=== PATIENT | male | born 1960 | race Caucasian/White ===

== ENCOUNTER 2019-04-27 14:17 | Emergency (ER) | payer SELFPAY ==
--- NOTE | 2019-04-27 14:45 | ER Document Report ---
ED Medical Screen (RME) - General Chief Complaint: Groin Pain Stated Complaint: POSSIBLE HERNIA Time Seen by Provider: 04/27/19 14:39 Mode of Arrival: Ambulatory Information source: Patient Notes: 58-year-old male presented to ED for complaint of a large boil/abscess to the right side of his neck, pain in the left groin that he thinks is a hernia and a obvious umbilical hernia. He states the thing on his neck was just a small pimple-like thing for 5 days ago and it is blown up quickly it is red and warm, he does have a reducible umbilical hernia and he states he sure he has 1 in the left groin also. He is alert oriented respirations regular nonlabored speaking in full sentences. He states the pain in the left groin is a 4.5 out of 5, states the pain in his right neck is about a 5 and the umbilical hernia is about a 1. He states the left groin pain is been for about 3 weeks but yesterday it jumped up tremendously in the amount of pain. I have greeted and performed a rapid initial assessment of this patient. A comprehensive ED assessment and evaluation of the patient, analysis of test results and completion of medical decision making process will be conducted by an additional ED providers. TRAVEL OUTSIDE OF THE [place] IN LAST 30 DAYS: No - Related Data Allergies/Adverse Reactions: No Known Allergies Allergy (Unverified 03/15/15 13:19) Physical Exam - Vital signs Vitals: Temp Pulse Resp BP Pulse Ox 99.0 F 102 H 20 158/75 H 97 04/27/19 14:37 04/27/19 14:37 04/27/19 14:37 04/27/19 14:37 04/27/19 14:37 Course - Vital Signs Vital signs: Temp Pulse Resp BP Pulse Ox 99.0 F 102 H 20 158/75 H 97 04/27/19 14:37 04/27/19 14:37 04/27/19 14:37 04/27/19 14:37 04/27/19 14:37
[2019-04-27 15:17] LABS: ABSOLUTE BASOPHILS # (AUTO) 0.1 10^3/uL (0.0-0.2); ABSOLUTE EOSINOPHILS # (AUTO) 0.1 10^3/uL (0.0-0.6); ABSOLUTE LYMPHOCYTES (AUTO) 1.7 10^3/uL (0.5-4.7); ABSOLUTE MONOCYTES (AUTO) 1.5 10^3/uL (0.1-1.4); ABSOLUTE NEUT (AUTO) 12.9 10^3/uL (1.7-8.2); BASOPHILS % (AUTO) 0.6 % (0-2); EOSINOPHILS % (AUTO) 0.4 % (0-6); HEMATOCRIT 46.8 % (37.9-51.0); HEMOGLOBIN 16.3 g/dL (13.5-17.0); LYMPHOCYTES % (AUTO) 10.3 % (13-45); MEAN CORPUSCULAR HEMOGLOBIN 29.6 pg (27.0-33.4); MEAN CORPUSCULAR HGB CONC 34.8 g/dL (32.0-36.0); MEAN CORPUSCULAR VOLUME 85 fl (80-97); PLATELET COUNT 234 10^3/uL (150-450); RED BLOOD COUNT 5.49 10^6/uL (4.35-5.55); SEGMENTED NEUTROPHILS % (AUTO) 79.7 % (42-78); TOTAL CELLS COUNTED % (AUTO) 100 %; WHITE BLOOD COUNT 16.2 10^3/uL (4.0-10.5)
[2019-04-27 15:20] LABS: APPEARANCE,URINE SLIGHTLY-CLOUDY; BILIRUBIN,URINE NEGATIVE (NEGATIVE); COLOR,URINE YELLOW; GLUCOSE, URINE NEGATIVE (NEGATIVE); KETONES,URINE NEGATIVE (NEGATIVE); PROTEIN,URINE NEGATIVE (NEGATIVE); URINE SPECIFIC GRAVITY 1.015; UROBILINOGEN,URINE NEGATIVE mg/dL (<2.0)
[2019-04-27 15:30] LABS: ALBUMIN 4.2 g/dL (3.5-5.0); ALKALINE PHOSPHATASE 98 U/L (38-126); ANION GAP 11 (5-19); ASPARTATE AMINO TRANSFERASE 20 U/L (17-59); BILIRUBIN,DIRECT 0.2 mg/dL (0.0-0.4); BILIRUBIN,TOTAL 1.2 mg/dL (0.2-1.3); BLOOD UREA NITROGEN 13 mg/dL (7-20); CALCIUM 9.3 mg/dL (8.4-10.2); CARBON DIOXIDE 25 mmol/L (22-30); CHLORIDE 102 mmol/L (98-107); GLUCOSE 95 mg/dL (75-110); POTASSIUM 4.1 mmol/L (3.6-5.0); TOTAL PROTEIN 7.5 g/dL (6.3-8.2)
--- NOTE | 2019-04-27 16:22 | RADIOLOGY REPORT (SQ) ---
EXAM DESCRIPTION: U/S NON OB PEL W/DOPPLER COMPLETED DATE/TIME: 04/27/2019 3:41 pm REASON FOR STUDY: Left groin pain possible hernia COMPARISON: None. TECHNIQUE: Dynamic and static grayscale images acquired of the localized site of clinical concern an d recorded on PACS. Additional selected color Doppler and spectral images recorded. SITE OF CONCERN: Left groin LIMITATIONS: None. FINDINGS: SKIN AND SUBCUTANEOUS TISSUES: Sonographically normal lymph node. DEEP SOFT TISSUES/MUSCLES: Incompletely compressible hernia in the region of interest. Limited furth er evaluation due to pain tolerance. VASCULAR: No increased or decreased vascularity. No occlusions. OTHER: No other significant finding. IMPRESSION: Hernia in the left inguinal region. Patient appears to have significant pain with manip ulation of this area. If clinically warranted, evaluation with CT may help assess for strangulation. TECHNICAL DOCUMENTATION: JOB ID: [id number] 2010 [employer]- All Rights Reserved Reading location - IP/workstation name: [email or web address]
--- NOTE | 2019-04-27 19:40 | RADIOLOGY REPORT (SQ) ---
EXAM DESCRIPTION: CT ABD/PELVIS WITH IV ONLY COMPLETED DATE/TIME: 04/27/2019 7:26 pm REASON FOR STUDY: eval for incarcerated hernia COMPARISON: None. TECHNIQUE: CT scan of the abdomen and pelvis performed using helical scanning technique with dynamic intravenous contrast injection. No oral contrast. Images reviewed with lung, soft tissue, and bone windows. Reconstructed coronal and sagittal MPR images reviewed. Delayed images for evaluation of the urinary system also acquired. All images stored on PACS. All CT scanners at this facility use dose modulation, iterative reconstruction, and/or weight based d osing when appropriate to reduce radiation dose to as low as reasonably achievable (ALARA). [facility]: Dose Right [facility]: CareDose [facility]: Dose Right [facility]: Teradose 4D [facility]: Tylr Mobile CONTRAST TYPE AND DOSE: contrast/concentration: Isovue 350.00 mg/ml; Total Contrast Delivered: 100.0 ml; Total Saline Delivered: 45.0 ml RENAL FUNCTION: GFR > 60. RADIATION DOSE: CT Rad equipment meets quality standard of care and radiation dose reduction techniq ues were employed. CTDIvol: 11.0 - 15.3 mGy. DLP: 1491 mGy-cm.. LIMITATIONS: None. FINDINGS: LOWER CHEST: No significant findings. No nodules or infiltrates. LIVER: Normal size. No masses. No dilated ducts. SPLEEN: Normal size. No focal lesions. PANCREAS: No masses. No significant calcifications. No adjacent inflammation or peripancreatic fluid collections. Pancreatic duct not dilated. GALLBLADDER: No identified stones by CT criteria. No inflammatory changes to suggest cholecystitis. ADRENAL GLANDS: No significant masses or asymmetry. RIGHT KIDNEY AND URETER: No solid masses. No significant calcifications. No hydronephrosis or hyd roureter. LEFT KIDNEY AND URETER: No solid masses. No significant calcifications. No hydronephrosis or hydr oureter. AORTA AND VESSELS: No aneurysm. No dissection. Renal arteries, SMA, celiac without stenosis. RETROPERITONEUM: No retroperitoneal adenopathy, hemorrhage or masses. BOWEL AND PERITONEAL CAVITY: There is inflammatory change with very colonic stranding at the junction of the sigmoid and descending colons typical of diverticulitis. No abscess. APPENDIX: Not visualized. PELVIS: No mass. No free fluid. Normal bladder. ABDOMINAL WALL: There is stranding in the inguinal canal on the left likely related to the diverticul itis. Some herniated into the inguinal canal. No bowel within the inguinal canal. There is also a periumbilical fat containing hernia. BONES: No significant or acute findings. OTHER: No other significant finding. IMPRESSION: Diverticulitis of the sigmoid colon at the junction of the descending colon just adjacen t to the inguinal canal on the left. There is some fat stranding extending into the inguinal canal b ut no herniated bowel. Fat containing periumbilical hernia. TECHNICAL DOCUMENTATION: JOB ID: [id number] Quality ID # [id number]: Final reports with documentation of one or more dose reduction techniques (e.g., Au tomated exposure control, adjustment of the mA and/or kV according to patient size, use of iterative reconstruction technique) 2010 [employer]- All Rights Reserved Reading location - IP/workstation name: [email or web address]
[2019-04-27] MEDS ORDERED: OXYCODONE-ACETAMINOPHEN 5-325 MG TABLET PO ONE (19:52)
[2019-04-27] MEDS ORDERED: NORMAL SALINE 1000 ML 1,000 ML IV ONE (19:53)
[2019-04-27] MEDS ORDERED: ONDANSETRON HCL INJ/PF 4 MG/2 ML SDV IV ONE (19:54)
[2019-04-27] MEDS ORDERED: MORPHINE SULFATE 10 MG/ML INJ IV ONE (19:54)
[2019-04-27] MEDS ORDERED: CIPROFLOXACIN HCL 750 MG TABLET PO ONE (21:15)
[2019-04-27] MEDS ORDERED: METRONIDAZOLE 500 MG TABLET PO ONE (21:15)
[2019-04-27] MEDS ORDERED: HYDROCODONE/ACETAMINOPHEN 5-325 MG (6 TAB/ER DISP) PO PRN (22:15)
[2019-04-27] MEDS ORDERED: ONDANSETRON ODT 4 MG TAB (6 TAB/ER DISP) PO PRN (22:15)
--- NOTE | 2019-04-27 22:20 | ER Document Report ---
ED GI/ - General Chief Complaint: Groin Pain Stated Complaint: POSSIBLE HERNIA Time Seen by Provider: 04/27/19 14:39 Mode of Arrival: Ambulatory Notes: 58-year-old male presented to ED for pain in the left groin that he thinks is a hernia and a obvious umbilical hernia. He states the pain in the left groin is a 4.5 out of 5, states the pain in his right neck is about a 5 and the umbilical hernia is about a 1. He states the left groin pain is been for about 3 weeks but yesterday the pain increased significantly. TRAVEL OUTSIDE OF THE [place] IN LAST 30 DAYS: No - Related Data Allergies/Adverse Reactions: No Known Allergies Allergy (Unverified 03/15/15 13:19) Past Medical History - General Information source: Patient - Social History Smoking Status: Current Every Day Smoker Family History: Reviewed & Not Pertinent Patient has suicidal ideation: No Patient has homicidal ideation: No - Medical History Medical History: Negative Surgical Hx: Negative - Immunizations Immunizations up to date: Yes Review of Systems - Review of Systems Gastrointestinal: See HPI -: Yes All other systems reviewed and negative Physical Exam - Vital signs Vitals: Temp Pulse Resp BP Pulse Ox 99.0 F 102 H 20 158/75 H 97 04/27/19 14:37 04/27/19 14:37 04/27/19 14:37 04/27/19 14:37 04/27/19 14:37 - Notes Notes: PHYSICAL EXAMINATION: GENERAL: Well-appearing, well-nourished and in no acute distress. HEAD: Atraumatic, normocephalic. EYES: Pupils equal round and reactive to light, extraocular movements intact, sclera anicteric, conjunctiva are normal. ENT: Nares patent, oropharynx clear without exudates. Moist mucous membranes. NECK: Normal range of motion, supple without lymphadenopathy LUNGS: Breath sounds clear to auscultation bilaterally and equal. No wheezes rales or rhonchi. HEART: Regular rate and rhythm without murmurs ABDOMEN: Soft, nondistended abdomen. Palpable, reducible umbilical hernia. No guarding, no rebound. No masses appreciated. Musculoskeletal: Normal range of motion, no pitting or edema. No cyanosis. NEUROLOGICAL: Cranial nerves grossly intact. Normal speech, normal gait. Normal sensory, motor exams PSYCH: Normal mood, normal affect. SKIN: Warm, Dry, normal turgor, no rashes or lesions noted. Course - Re-evaluation Re-evalutation: Microbiology 04/27/19 14:45 Urine Culture - Final Clean Catch Midstream Mixed Urogenital [facility] 04/27/19 04/27/19 04/27/19 14:45 14:45 14:45 WBC 16.2 H RBC 5.49 Hgb 16.3 Hct 46.8 MCV 85 MCH 29.6 MCHC 34.8 RDW 14.0 Plt Count 234 Lymph % (Auto) 10.3 L [place] % (Auto) 9.0 Eos % (Auto) 0.4 Baso % (Auto) 0.6 Absolute Neuts (auto) 12.9 H Absolute Lymphs (auto) 1.7 Absolute Monos (auto) 1.5 H Absolute Eos (auto) 0.1 Absolute Basos (auto) 0.1 Seg Neutrophils % 79.7 H Sodium 138.3 Potassium 4.1 Chloride 102 Carbon Dioxide 25 Anion Gap 11 BUN 13 Creatinine 0.97 Est GFR ( Amer) > 60 Est GFR (MDRD) Non-Af > 60 Glucose 95 Calcium 9.3 Total Bilirubin 1.2 Direct Bilirubin 0.2 Neonat Total Bilirubin Not Reportable Neonat Direct Bilirubin Not Reportable Neonat Indirect Bili Not Reportable AST 20 ALT 17 Alkaline Phosphatase 98 Total Protein 7.5 Albumin 4.2 Lipase Urine Color YELLOW Urine Appearance SLIGHTLY-CLOUDY Urine pH 6.0 Ur Specific Winger 1.015 Urine Protein NEGATIVE Urine Glucose (UA) NEGATIVE Urine Ketones NEGATIVE Urine Blood MODERATE H Urine Nitrite (Reflex) NEGATIVE Urine Bilirubin NEGATIVE Urine Urobilinogen NEGATIVE Leukocyte Esterase Rfl TRACE H Urine RBC (Auto) 35 U Hyaline Cast (Auto) 1 Urine WBC (Reflex) 1 Squamous Epi Cells Auto <1 Urine Mucus (Auto) MOD Urine Ascorbic Acid NEGATIVE 04/27/19 14:45 WBC RBC Hgb Hct MCV MCH MCHC RDW Plt Count Lymph % (Auto) [place] % (Auto) Eos % (Auto) Baso % (Auto) Absolute Neuts (auto) Absolute Lymphs (auto) Absolute Monos (auto) Absolute Eos (auto) Absolute Basos (auto) Seg Neutrophils % Sodium Potassium Chloride Carbon Dioxide Anion Gap BUN Creatinine Est GFR ( Amer) Est GFR (MDRD) Non-Af Glucose Calcium Total Bilirubin Direct Bilirubin Neonat Total Bilirubin Neonat Direct Bilirubin Neonat Indirect Bili AST ALT Alkaline Phosphatase Total Protein Albumin Lipase 52.1 Urine Color Urine Appearance Urine pH Ur Specific Winger Urine Protein Urine Glucose (UA) Urine Ketones Urine Blood Urine Nitrite (Reflex) Urine Bilirubin Urine Urobilinogen Leukocyte Esterase Rfl Urine RBC (Auto) U Hyaline Cast (Auto) Urine WBC (Reflex) Squamous Epi Cells Auto Urine Mucus (Auto) Urine Ascorbic Acid Pelvis Ultrasound 04/27/19 14:45 IMPRESSION: Hernia in the left inguinal region. Patient appears to have significant pain with manipulation of this area. If clinically warranted, evaluation with CT may help assess for strangulation. Abdomen/Pelvis CT 04/27/19 18:07 IMPRESSION: Diverticulitis of the sigmoid colon at the junction of the descending colon just adjacent to the inguinal canal on the left. There is some fat stranding extending into the inguinal canal but no herniated bowel. Fat containing periumbilical hernia. Patient appears well, nontoxic, vital signs within normal limits. Patient does have an elevated white blood count of 16.2. CT abdomen pelvis shows diverticulitis of the sigmoid colon, no incarcerated hernia noted. Patient has not had any vomiting. He is able to tolerate oral medications. He will be given a p.o. trial and then sent home on oral antibiotics if he can tolerate. Strict ED return precautions discussed, patient verbalized understanding and agreement with same. - Vital Signs Vital signs: Temp Pulse Resp BP Pulse Ox 98.0 F 90 16 146/94 H 96 04/27/19 22:28 04/27/19 22:28 04/27/19 22:28 04/27/19 22:28 04/27/19 22:28 - Laboratory Result Diagrams: 04/27/19 14:45 04/27/19 14:45 Laboratory results interpreted by me: 04/27/19 04/27/19 14:45 14:45 WBC 16.2 H Lymph % (Auto) 10.3 L Absolute Neuts (auto) 12.9 H Absolute Monos (auto) 1.5 H Seg Neutrophils % 79.7 H Urine Blood MODERATE H Leukocyte Esterase Rfl TRACE H Discharge - Discharge Clinical Impression: Diverticulitis Inguinal hernia Qualifiers: Obstruction and gangrene presence: without obstruction or gangrene Laterality: unspecified laterality Recurrence: not specified as recurrent Qualified Code(s): K40.90 - Unilateral inguinal hernia, without obstruction or gangrene, not specified as recurrent Umbilical hernia Qualifiers: Obstruction and gangrene presence: without obstruction or gangrene Qualified Code(s): K42.9 - Umbilical hernia without obstruction or gangrene Condition: Stable Disposition: HOME, SELF-CARE Additional Instructions: Diverticulitis You have been diagnosed as having diverticulitis. This is an inflammation of a small pouch attached to the colon, called a diverticulum. Many of these small pouches can form on the colon as you get older. They are often caused by constipation. When inflamed or infected, symptoms arise -- usually abdominal pain, constipation or diarrhea, fever, and blood in the stool. Severe diverticulitis may require hospitalization. More mild cases are usually treated with antibiotics and clear liquid diet. As you improve, a diet low in residue (one which forms little stool) is prescribed. When you are better, you should eat a high-fiber diet. Stool softeners (like Metamucil) are usually recommended. Call the doctor or go to the hospital if there is increasing pain, vomiting, high fever, large amounts of blood passed, or if bowel movements cease. Please take all medications as prescribed. Return to the emergency department if you begin vomiting, develop a high fever or unable to take down your medications. Occasionally some patients need to be admitted for diverticulitis. Eat a bland diet over the next several days, start off with clear liquids as we discussed and then advance as tolerated. I sent your prescriptions to [facility], you should be able to get your antibiotics there for free. Prescriptions: Ciprofloxacin HCl [Cipro 500 mg Tablet] 500 mg PO BID #10 tablet Metronidazole [Flagyl 500 mg Tablet] 500 mg PO Q6H #28 tablet Oxycodone HCl/Acetaminophen [Percocet 5-325 mg Tablet] 1 - 2 tab PO Q4H PRN #10 tablet PRN Reason: Promethazine HCl [Phenergan 25 mg Tablet] 1 - 2 tab PO Q6H PRN #15 tablet PRN Reason: Forms: Return to Work
[2019-04-27 22:29] VITALS: BP 146/94
== END 2019-04-27 22:29 | disposition home or self-care (01) ==
LOC: ER 14:17
DX: K57.92 Diverticulitis of intestine, part unspecified, without perforation or abscess without bleeding (principal); K42.9 Umbilical hernia without obstruction or gangrene; K40.90 Unilateral inguinal hernia, without obstruction or gangrene, not specified as recurrent; R10.30 Lower abdominal pain, unspecified; R10.32 Left lower quadrant pain; M54.2 Cervicalgia; F17.200 Nicotine dependence, unspecified, uncomplicated
CPT/HCPCS: 99284; 96361; 96374; 96375; 36415; 87086; 83690; 85025; 80053; 81001; 76856; 93976; 74177; J2270; J2405; J3490; J7030